=== PATIENT | female | born 1945 | race Caucasian/White ===

== ENCOUNTER → 2016-12-25 | Day surgery (SDC) | payer OTHER, BC ==
[2016-12-02 14:52] VITALS: Ht 163.8 cm; Wt 68.0 kg
[~2016-12-25] VITALS: Ht 163.8 cm; Wt 68.0 kg
[~2016-12-25] MED LIST: CLR10 PO; DEXA10IN IV; HYDR12.55 PO; IOPAMIDOL INJ 61% 15 ML VIAL ONE; LIDOCAINE HCL 1% MPF 5 ML VIAL ONE; LISI-725 PO; METFTAB PO; MULT-506 PO; RMCI IV; SODIUM CHLORIDE 0.9% INJ 10 ML VIAL ONE; VITAMIN B6 PO; VITAMIN C PO; VITAMIN D3 PO; VITAMIN K PO; ZINC PO
--- NOTE | 2016-12-25 14:01 | History & Physical Bridge - [place] ---
H&P Re-Evaluation Bridge Note: I have examined the patient, reviewed the History & Physical and in the interval since the performance of the History & Physical I have noted the following changes of clinical significance: No changes noted
[2016-12-25 14:28] VITALS: TEMP 36.8
--- NOTE | 2016-12-25 14:35 | Discharge Instructions ---
Discharge Instructions Date of Service Dec 25, 2016. Visit Reason for Visit: Lumbar Radiculopathy Discharge Discharge Diagnosis / Problem: left leg pain Discharge Goals Goal(s): Decrease discomfort, Improve function Activity Recommendations Activity Limitations: resume your previous activity Anesthesia . Post Anesthesia Instructions: If you have had General Anesthesia or IV Sedation: * Do not drive today. * Resume driving when surgeon permits. * Do not make important decisions or sign legal documents today. * Call surgeon for: 1. Temperature elevations greater than 101 degrees F. 2. Uncontrollable pain. 3. Excessive bleeding. 4. Persistent nausea and vomiting. 5. Medication intolerance (nausea, vomiting or rash). * For nausea and vomiting use only clear liquids such as: tea, soda, bouillon until nausea subsides, then gradually increase diet as tolerated. * If you have any concerns or questions, call your surgeon's office. If physician is unavailable and it is an emergency, call 911 or go to the nearest emergency room. . Diet Recommendations Recommended Home Diet: resume previous diet Procedures Procedures Performed: LUMBARE EPIDURAL STEROID INJECTION. Pending Studies Studies pending at discharge: no Medical Emergencies . Who to Call and When: Medical Emergencies: If at any time you feel your situation is an emergency, please call 911 immediately. . Non-Emergent Contact Non-Emergency issues call your: Specialist . . "Provider Documentation" section prepared by Daren Koenig. .
[2016-12-25 14:43] VITALS: BP 138/72; PULSE 55; O2SAT 98
--- NOTE | 2016-12-25 14:48 | OPERATIVE REPORT ---
DATE OF OPERATION: 12/25/2016 PREOPERATIVE DIAGNOSES: Grade 1 L4-L5 spondylolisthesis and L5-S1 disk disease with a left lower extremity radiculopathy. POSTOPERATIVE DIAGNOSES: Same. PROCEDURE: Left paramedian L5-S1 intralaminar epidural steroid injection under fluoroscopic guidance. INDICATIONS: The patient is a 71-year-old female who received an epidural injection with greater than 90% relief of pain in July. She had done well up until a few weeks ago, when the pain started to return and become problematic and functionally limiting to her. She presents today for an injection to provide her with relief. PHYSICAL EXAMINATION: GENERAL: Pleasant female seated comfortably. MUSCULOSKELETAL: Lumbar paraspinal muscles were palpated. There was some mild sensitivity to palpation of the sciatic notch, little more on the left than the right, limitations with forward flexion. She had normal motor and sensory exam. CONSENT: Verbal and written consent was obtained from the patient. Risks and benefits were reviewed. Risks include, but are not limited to epidural abscess, epidural hematoma, allergic reaction, and dural puncture. The patient wishes to proceed. DESCRIPTION OF PROCEDURE: The patient was taken back to the special procedures room of the [facility], where she was maintained in a prone position. Backside was cleansed with Betadine x3 and a dry sterile dressing was applied. Fluoroscope was used to identify the L5-S1 intralaminar space. The overlying skin was anesthetized with 4 mL of lidocaine 1% with a 25-gauge 1.5-inch needle. A 22-gauge 3.5-inch Tuohy needle was then placed into the intralaminar space. It was quite tight and advanced under lateral fluoroscopic guidance. Loss of resistance was noted at a depth of 7 cm. Isovue-300 contrast 1 mL was injected in which demonstrated epidural uptake pattern, which was confirmed with both AP and lateral views. She then underwent injection after negative aspiration of 40 mg of Depo-Medrol and 4 mL of preservative free sodium chloride. Injection was well tolerated. DISPOSITION: 1. The patient is taken out into the discharge recovery area, where she will be discharged home once discharge criteria have been met. 2. Follow up in the [facility] office in 2-4 weeks. I attest to the content of the Intraoperative Record and any orders documented therein. Any exceptio ns are noted below.
== END | disposition home or self-care (01) ==
LOC: X.SURG 12:45
PROVIDERS: ATTEND Physical Medicine & Rehabilitation
DX: M43.16 Spondylolisthesis, lumbar region (principal); M51.17 Intervertebral disc disorders with radiculopathy, lumbosacral region

== ENCOUNTER → 2017-06-17 | Day surgery (SDC) | payer OTHER, BC ==
[2017-05-29 08:20] VITALS: Ht 163.8 cm; Wt 67.7 kg
[~2017-06-17] VITALS: Ht 163.8 cm; Wt 67.7 kg
[~2017-06-17] MED LIST changes: -MULT-506 PO
[2017-06-17 14:11] VITALS: TEMP 37.1
--- NOTE | 2017-06-17 15:33 | Discharge Instructions ---
Discharge Instructions Date of Service Jun 17, 2017. Visit Reason for Visit: Lumbar Radiculopathy Discharge Discharge Diagnosis / Problem: left leg pain Discharge Goals Goal(s): Decrease discomfort, Improve function Activity Recommendations Activity Limitations: resume your previous activity Anesthesia . Post Anesthesia Instructions: If you have had General Anesthesia or IV Sedation: * Do not drive today. * Resume driving when surgeon permits. * Do not make important decisions or sign legal documents today. * Call surgeon for: 1. Temperature elevations greater than 101 degrees F. 2. Uncontrollable pain. 3. Excessive bleeding. 4. Persistent nausea and vomiting. 5. Medication intolerance (nausea, vomiting or rash). * For nausea and vomiting use only clear liquids such as: tea, soda, bouillon until nausea subsides, then gradually increase diet as tolerated. * If you have any concerns or questions, call your surgeon's office. If physician is unavailable and it is an emergency, call 911 or go to the nearest emergency room. . Diet Recommendations Recommended Home Diet: resume previous diet Procedures Procedures Performed: LUMBAR EPIDURAL STEROID INJECTION. Pending Studies Studies pending at discharge: no Medical Emergencies . Who to Call and When: Medical Emergencies: If at any time you feel your situation is an emergency, please call 911 immediately. . Non-Emergent Contact Non-Emergency issues call your: Specialist . . "Provider Documentation" section prepared by Daren Koenig. .
[2017-06-17 15:43] VITALS: BP 120/76; PULSE 77; O2SAT 98
--- NOTE | 2017-06-17 16:08 | OPERATIVE REPORT ---
DATE OF OPERATION: 06/17/2017 PREOPERATIVE DIAGNOSIS: Grade 1 L4-L5 spondylolisthesis with a left L5 radiculopathy. POSTOPERATIVE DIAGNOSIS: Same. PROCEDURE: Left paramedian L5-S1 intralaminar epidural steroid injection under fluoroscopic guidance. SURGEON: Dr. Daren Koenig. INDICATIONS: The patient is a 71-year-old white female who has received epidurals in the past with good responses most recently in November; however, the pain has been returning and is problematic to her. She presents today for another epidural steroid injection. PHYSICAL EXAMINATION: Pleasant female seated comfortably. She has normal lower extremity strength. Negative seated straight leg raises. Subjective sensation is diminished in the left L5 dermatomal distribution. CONSENT: Verbal and written consent was obtained from the patient. Risks and benefits were reviewed. Risks include but are not limited to lumbar epidural hematoma, lumbar epidural abscess, dural puncture, allergic reaction. She wishes to proceed. PROCEDURE: The patient was taken back to the special procedures room of [facility]. She was maintained in a prone position. Backside was cleansed with Betadine x3 and a dry sterile dressing was applied. Fluoroscope was used to identify the L5-S1 intralaminar space. Overlying skin on the left side was anesthetized with 4 mL of lidocaine 1% with a 25 gauge 1.5-inch needle. A 22-gauge 3-1/2 inch Tuohy needle was then directed down towards the intralaminar space. It was advanced under lateral fluoroscopic guidance and loss of resistance was noted at a depth of 6 cm. Isovue-300 contrast 1 mL was injected in which demonstrated epidural uptake pattern which was obvious on the lateral view. She then underwent injection after negative aspiration of 40 mg of Depo-Medrol, 4 mL of preservative free sodium chloride. Injection reproduced a familiar transient radicular sensation down the left leg. DISPOSITION: 1. The patient is taken out into the discharge recovery area where she will be discharged home once discharge criteria have been met. 2. Follow up in the [facility] office in 2-4 weeks. I attest to the content of the Intraoperative Record and any orders documented therein. Any exception s are noted below.
== END | disposition home or self-care (01) ==
LOC: X.SURG 14:00
PROVIDERS: ATTEND Physical Medicine & Rehabilitation
DX: M43.16 Spondylolisthesis, lumbar region (principal); M54.16 Radiculopathy, lumbar region

== ENCOUNTER → 2017-12-16 | Day surgery (SDC) | payer OTHER, BC ==
[2017-12-03 13:44] VITALS: Ht 163.8 cm; Wt 67.7 kg
[~2017-12-16] VITALS: Ht 163.8 cm; Wt 67.7 kg
--- NOTE | 2017-12-16 14:39 | [facility] Post Operative Brief Note ---
Immediate Operative Summary Operative Date Dec 16, 2017. Pre-Operative Diagnosis Radiculopathy of lumbar region. Spondylolisthesis lumbar region Post-Operative Diagnosis Same Procedure(s) Performed Lumbar Epidural Steroid Injection Surgeon Dr. Elzbieta Koenig Database Tester Surgeon(s) None Estimated Blood Loss 0 Findings Consistent with Post-Op Diagnosis Specimens NA Drains None Anesthesia Type Local Complication(s) none Disposition Disposition:
--- NOTE | 2017-12-16 14:40 | Discharge Instructions ---
Discharge Instructions Date of Service Dec 16, 2017. Visit Reason for Visit: Radiculopathy & Spondylolisthesis Lumbar Region Discharge Discharge Diagnosis / Problem: Left leg pain Discharge Goals Goal(s): Decrease discomfort, Improve function Activity Recommendations Activity Limitations: resume your previous activity Anesthesia . Post Anesthesia Instructions: If you have had General Anesthesia or IV Sedation: * Do not drive today. * Resume driving when surgeon permits. * Do not make important decisions or sign legal documents today. * Call surgeon for: 1. Temperature elevations greater than 101 degrees F. 2. Uncontrollable pain. 3. Excessive bleeding. 4. Persistent nausea and vomiting. 5. Medication intolerance (nausea, vomiting or rash). * For nausea and vomiting use only clear liquids such as: tea, soda, bouillon until nausea subsides, then gradually increase diet as tolerated. * If you have any concerns or questions, call your surgeon's office. If physician is unavailable and it is an emergency, call 911 or go to the nearest emergency room. . Diet Recommendations Recommended Home Diet: resume previous diet Procedures Procedures Performed: Lumbar Epidural Steroid Injection Pending Studies Studies pending at discharge: no Medical Emergencies . Who to Call and When: Medical Emergencies: If at any time you feel your situation is an emergency, please call 911 immediately. . Non-Emergent Contact Non-Emergency issues call your: Specialist . . "Provider Documentation" section prepared by Daren Koenig. .
[2017-12-16 14:41] VITALS: TEMP 36.6
[2017-12-16 15:06] VITALS: BP 107/69; PULSE 64; O2SAT 98
--- NOTE | 2017-12-16 15:09 | OPERATIVE REPORT ---
DATE OF OPERATION: 12/16/2017 PREOPERATIVE DIAGNOSIS: L5-S1 disc disease with left lower extremity radiculopathy and underlying spondylolisthesis. POSTOPERATIVE DIAGNOSIS: L5-S1 disc disease with left lower extremity radiculopathy and underlying spondylolisthesis. PROCEDURE: Left paramedian L5-S1 intralaminar epidural steroid injection under fluoroscopic guidance. INDICATIONS: The patient is a 72-year-old white female who does very well with an epidural injection. She had 3 previous injections with significant relief of her pain. She has had increasing pain and a concern with an upcoming trip to [place]. She presents today for an epidural steroid injection. PHYSICAL EXAMINATION: A pleasant female, seated comfortably, in no apparent distress. She has normal lower extremity strength, negative seated straight leg raises, and she has intact sensation distally. CONSENT: Verbal and written consent was reviewed with the patient. Risks include but are not limited to epidural abscess, epidural hematoma, allergic reaction, dural puncture. The patient wishes to proceed. PROCEDURE IN DETAIL: The patient was taken back to the special procedures room of the [facility] where she was maintained in a prone position. Backside was cleansed with Betadine x3 and a dry sterile dressing was applied. Fluoroscope was used to identify the L5-S1 intralaminar space. The overlying skin on the left side was anesthetized with 4 mL of lidocaine 1% with 25 gauge 1.5-inch needle. A 22 gauge 3.5 inch Tuohy needle was then directed down towards the intralaminar space. It was advanced under lateral fluoroscopic guidance to a depth of 6 cm. Loss of resistance was noted. Isovue-300 contrast 1 mL was injected in which demonstrated epidural uptake pattern. She then underwent injection after negative aspiration of 40 mg of Depo-Medrol, 4 mL of preservative-free sodium chloride. Injection was well-tolerated. DISPOSITION: 1. The patient is taken out into the discharge recovery area where she will be discharged home once discharge criteria are met. 2. Follow up in the [facility] office in 2-4 weeks. I attest to the content of the Intraoperative Record and any orders documented therein. Any exception s are noted below.
== END | disposition home or self-care (01) ==
LOC: X.SURG 13:19
PROVIDERS: ATTEND Physical Medicine & Rehabilitation
DX: M51.16 Intervertebral disc disorders with radiculopathy, lumbar region (principal); M43.16 Spondylolisthesis, lumbar region; I10 Essential (primary) hypertension; E11.9 Type 2 diabetes mellitus without complications; K50.90 Crohn's disease, unspecified, without complications; Z79.899 Other long term (current) drug therapy; Z79.84 Long term (current) use of oral hypoglycemic drugs; Z90.89 Acquired absence of other organs; Z98.890 Other specified postprocedural states; Z98.818 Other dental procedure status; Z83.3 Family history of diabetes mellitus; Z82.49 Family history of ischemic heart disease and other diseases of the circulatory system